=== PATIENT | female | born 2005 | race Two or more races ===

== ENCOUNTER 2025-05-13 11:00 | Emergency (ER) | payer OTHER, SELFPAY ==
[2025-05-13 10:41] VITALS: BP 128/83; PULSE 107; RESP 18; TEMP 36.7; O2SAT 98; BMI 37.1
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
[2025-05-13 11:16] VITALS: PULSE 110; O2SAT 98
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
[2025-05-13 11:21] VITALS: PULSE 88; O2SAT 100
[2025-05-13 12:41] LABS: Basophils # (Auto) 0.0 Thou/mm3 (0.0-0.2); Basophils % (Auto) 0 % (0-2.5); Eosinophils # (Auto) 0.0 Thou/mm3 (0.0-0.5); Eosinophils % (Auto) 0 % (0-10); Hematocrit 34.3 % (36.0-46.0); Hemoglobin 11.7 g/dL (12.0-16.0); Immature Granulocytes Auto 0.07 Thou/mm3 (0.00-0.00); Lymphocytes # (Auto) 2.1 Thou/mm3 (1.0-4.8); Lymphocytes % (Auto) 16 % (10-50); Mean Corpuscular HGB Conc 34.1 g/dl (31.0-37.0); Mean Corpuscular Hemoglobin 29.3 pg (25.0-35.0); Mean Corpuscular Volume 86 fL (80-100); Monocytes # (Auto) 0.5 Thou/mm3 (0.0-0.8); Monocytes % (Auto) 4 % (0-12); Neutrophils # (Auto) 9.9 Thou/mm3 (1.8-7.7); Neutrophils % (Auto) 79 % (37-80); Nucleated Red Blood Cell # 0.00 Thou/mm3 (0.00-0.00); Nucleated Red Blood Cell % 0 /100 WBC (0); Platelet Count 275 Thou/mm3 (140-440); RDW Standard Deviation 40.5 fL (36.4-46.3); Red Blood Count 3.99 Miln/mm3 (4.00-5.20); White Blood Count 12.6 Thou/mm3 (4.5-11.0)
[2025-05-13 13:02] LABS: INR 1.0 (0.9-1.3); Partial Thromboplastin Time 26.6 Seconds (22.0-36.0); Prothrombin Time 10.8 Seconds (9.0-12.2)
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
== END 2025-05-13 13:21 | disposition home or self-care (01) ==
LOC: S4SX 11:21 → SERX 11:46 → S4SX 11:48 → SERX 11:53
PROVIDERS: Emergency Provider Emergency Medicine; Referring Provider Obstetrics & Gynecology; Visit Provider Obstetrics & Gynecology
DX: O9A.212 Injury, poisoning and certain other consequences of external causes complicating pregnancy, second trimester (principal); S09.90XA Unspecified injury of head, initial encounter; Z3A.23 23 weeks gestation of pregnancy; Y04.2XXA Assault by strike against or bumped into by another person, initial encounter
CPT/HCPCS: 36415; 76805; 80307; 85025; 85610; 85730; 99283